=== PATIENT | female | born 1985 | race Caucasian/White ===

== ENCOUNTER 2019-05-19 06:00 | Outpatient (RCR) | payer MEDICAID, SELFPAY | END 2019-06-18 23:59 | disposition home or self-care (01) | LOC: MPT 06:00 | PROVIDERS: Family Provider Family Medicine; PCP Family Medicine; Referring Provider Family Medicine; Visit Provider Family Medicine | DX: Z47.81 Encounter for orthopedic aftercare following surgical amputation (principal); Z89.611 Acquired absence of right leg above knee | CPT/HCPCS: 97110; 97116; 97161 ==

== ENCOUNTER 2019-06-19 06:00 | Outpatient (RCR) | payer MEDICAID, OTHER, SELFPAY | END 2019-07-17 23:59 | disposition home or self-care (01) | LOC: MPT 06:00 | PROVIDERS: Family Provider Family Medicine; PCP Family Medicine; Referring Provider Family Medicine; Visit Provider Family Medicine | DX: R26.89 Other abnormalities of gait and mobility (principal); Z89.611 Acquired absence of right leg above knee | CPT/HCPCS: 97116 ==

== ENCOUNTER → 2019-07-14 10:51 | Outpatient (BNVA) | payer MEDICAID, OTHER, SELFPAY | PROVIDERS: Family Provider Family Medicine; PCP Family Medicine; Visit Provider Counselor Professional | DX: Z79.899 Other long term (current) drug therapy (principal); F31.32 Bipolar disorder, current episode depressed, moderate | CPT/HCPCS: 80061; 83036 ==

== ENCOUNTER 2019-07-18 06:00 | Outpatient (RCR) | payer MEDICAID, SELFPAY ==
[2019-07-15 16:28] VITALS: BP 118/80; BMI 33.8
== END 2019-08-17 23:59 | disposition home or self-care (01) ==
LOC: MPT 06:00
PROVIDERS: Family Provider Family Medicine; PCP Family Medicine; Referring Provider Family Medicine; Visit Provider Family Medicine
DX: Z89.611 Acquired absence of right leg above knee (principal)
CPT/HCPCS: 97116

== ENCOUNTER → 2020-09-06 11:46 | Outpatient (BNVA) | payer MEDICAID, SELFPAY ==
[2019-07-15 16:28] VITALS: BP 118/80; BMI 33.8
== END ==
PROVIDERS: Family Provider Family Medicine; PCP Family Medicine; Visit Provider Registered Nurse
DX: Z03.89 Encounter for observation for other suspected diseases and conditions ruled out (principal); Z79.899 Other long term (current) drug therapy
CPT/HCPCS: 36415; 80053; 80061; 82306; 83036; 84443; 85007; 85027

== ENCOUNTER → 2021-11-15 11:24 | Outpatient (BNVA) | payer MEDICAID, SELFPAY ==
[2019-07-15 16:28] VITALS: BP 118/80; BMI 33.8
== END ==
PROVIDERS: Family Provider Family Medicine; PCP Family Medicine; Visit Provider Registered Nurse
DX: F31.32 Bipolar disorder, current episode depressed, moderate (principal); F41.1 Generalized anxiety disorder; Z79.899 Other long term (current) drug therapy
CPT/HCPCS: 80053; 80061; 82306; 83036; 85025

== ENCOUNTER → 2022-08-15 11:18 | Outpatient (BNVA) | payer MEDICAID, SELFPAY ==
[2019-07-15 16:28] VITALS: BP 118/80; BMI 33.8
== END ==
PROVIDERS: Family Provider Family Medicine; PCP Family Medicine; Visit Provider Family Medicine
DX: M62.830 Muscle spasm of back (principal); M54.50 Low back pain, unspecified; G89.29 Other chronic pain
CPT/HCPCS: 72100

== ENCOUNTER 2022-08-26 13:39 | Outpatient (CLI) | payer MEDICAID, SELFPAY ==
[2019-07-15 16:28] VITALS: BP 118/80; BMI 33.8
--- NOTE | 2022-08-26 14:00 | CT_ITS ---
WS: [id number] CT LUMBAR SPINE, noncontrast. HISTORY: M54.50 - Low back pain, unspecified TECHNIQUE: Contiguous 2.0 mm axial imaging are performed. Sagittal and coronal reformats are submitte d and reviewed. All CT scans at [facility] use at least one of these dose optimization techni ques: automated exposure control; mA and/or kV adjustment per patient size (includes targeted exams w here dose is matched to clinical indication); or iterative reconstruction. IV contrast: None DLP: 731.18 mGy.cm COMPARISON: Radiograph 07/19/2022 Normal lumbar alignment with no loss of disc space height or vertebral body height. Dorsal column sti mulator electrodes are noted in the subarachnoid space. L1-2: Normal. L2-3: Small LEFT foraminal disc protrusion. Very slight contact on the traversing LEFT L3 nerve root. No displacement. L3-4: Very tiny LEFT foraminal disc protrusion. L4-5: Mild facet arthritis. No stenosis. L5-S1: No stenosis. Small amount of degenerative air in the SI joints. No fusion or erosions. CT/CT lumbar spine wo con* [id number] IMPRESSION: 1. No significant central or foraminal stenosis. 2. Small LEFT foraminal disc protrusions at L2-3 and L3-4. 3. Dorsal column stimulator is noted. 4. No fracture.
== END 2022-08-26 13:40 | disposition home or self-care (01) ==
LOC: RAD 13:46
PROVIDERS: PCP Family Medicine; Visit Provider Family Medicine
DX: G89.29 Other chronic pain (principal); M51.26 Other intervertebral disc displacement, lumbar region
CPT/HCPCS: 72131

== ENCOUNTER → 2022-09-18 09:34 | Outpatient (BNVA) | payer MEDICAID, SELFPAY ==
[2019-07-15 16:28] VITALS: BP 118/80; BMI 33.8
== END ==
PROVIDERS: PCP Family Medicine; Visit Provider Anesthesiology Pain Medicine
DX: G89.29 Other chronic pain (principal); M47.816 Spondylosis without myelopathy or radiculopathy, lumbar region; M62.830 Muscle spasm of back; Z89.511 Acquired absence of right leg below knee
CPT/HCPCS: 99205

== ENCOUNTER → 2022-10-08 10:08 | Outpatient (BNVA) | payer MEDICAID, SELFPAY ==
[2019-07-15 16:28] VITALS: BP 118/80; BMI 33.8
== END ==
PROVIDERS: PCP Family Medicine; Referring Provider Anesthesiology Pain Medicine; Visit Provider Orthopaedic Surgery
DX: Z01.818 Encounter for other preprocedural examination (principal); M54.9 Dorsalgia, unspecified; Z96.82 Presence of neurostimulator; Z89.511 Acquired absence of right leg below knee
CPT/HCPCS: 36415; 72070; 72110; 80053; 85025; 99204

== ENCOUNTER → 2022-10-15 13:24 | Outpatient (BNVA) | payer MEDICAID, SELFPAY ==
[2019-07-15 16:28] VITALS: BP 118/80; BMI 33.8
== END ==
PROVIDERS: PCP Family Medicine; Visit Provider Anesthesiology Pain Medicine
DX: M47.816 Spondylosis without myelopathy or radiculopathy, lumbar region (principal)
CPT/HCPCS: 64493; 64494; 64495; J3490

== ENCOUNTER 2022-10-25 06:21 | Day surgery (SDC) | payer MEDICAID, SELFPAY ==
[2019-07-15 16:28] VITALS: BP 118/80; BMI 33.8
--- NOTE | 2022-10-18 08:12 | ANES.PREANE2 ---
Pre-Anesthetic Assessment Height/Weight: Height 1.6 m Weight 90.265 kg Operation Date: 10/25/22 10:20 Proposed Procedures p Spinal cord stimulator generator removal: 47859,M54.9(Not Applicable) - Willian Tesfaye DO Familial anesthetic complications: none Social Alcohol (few times per month) Airway Submandibular: within normal limits Cervical ROM: within normal limits Mallampati: Class II Dentition: full Pulmonary None reported CV/HEM Hypertension None reported Hepatic None reported GI Gastroesophageal Reflux Disease (well controlled.) Metabolic Morbid Obesity Musc/skel Lower Back Pain and Weakness Wheelchair bound 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 Anesthetic Plan ASA status: 3 Anesthesia: General Medications/Allergies Home Medications Medication Instructions Recorded Confirmed Last Taken Type fluoxetine 10 mg capsule (Prozac) 10 mg PO DAILY #30 caps 05/11/22 10/18/22 10/18/22 Rx fluoxetine 20 mg capsule (Prozac) 20 mg PO DAILY #30 caps 05/11/22 10/18/22 10/18/22 Rx trazodone 100 mg tablet 200 mg PO .at bedtime #60 tabs 05/11/22 10/18/22 10/18/22 Rx gabapentin 800 mg tablet 800 mg PO TID 30 days #90 tabs 06/27/22 10/18/22 10/18/22 Rx loratadine 10 mg tablet (Allergy 10 mg PO DAILY 90 days #90 tabs 06/27/22 10/18/22 10/18/22 Rx Relief (loratadine)) metoprolol succinate 25 mg 25 mg PO DAILY 90 days #90 tabs 06/27/22 10/18/22 10/18/22 Rx tablet,extended release 24 hr pantoprazole 40 mg tablet,delayed 40 mg PO DAILY 90 days #90 tabs 06/27/22 10/18/22 10/18/22 Rx release methocarbamol 750 mg tablet 750 mg PO TID PRN muscle pain 30 08/15/22 10/18/22 10/18/22 Rx days #90 tabs aripiprazole 20 mg tablet 20 mg PO DAILY #30 tabs 08/27/22 10/18/22 10/18/22 Rx guanfacine 1 mg tablet 1 mg PO DAILY #30 tabs 09/17/22 10/18/22 10/18/22 Rx acetaminophen 325 mg tablet 325 mg PO QID PRN Pain 10/18/22 10/18/22 10/17/22 History (Tylenol) ibuprofen 400 mg tablet 400 mg PO Q6H PRN Pain 10/18/22 10/18/22 10/11/22 History Allergies Allergy/AdvReac Type Severity Reaction Status Date / Time amoxicillin Allergy Severe hives and Verified 10/18/22 07:42 trouble breathing PFS Anesthesia Medical History ADHD (attention deficit hyperactivity disorder), combined type Bipolar depression Fibromyalgia Generalized anxiety disorder History of hydrocephalus History of hydrocephalus Hx of osteosarcoma Insomnia Osteoarthritis Phantom limb pain Psychiatric care Seasonal allergies Surgical History Above knee amputation of right lower extremity 2019 Hx of knee surgery 2001 Hx of ventricular shunt present for 22 years Family History Grandfather Hyperlipidemia Cancer prostate Hypertension Grandmother Congestive heart failure Cancer Hyperlipidemia Social History Smoking and tobacco status: never smoked Second hand smoke exposure: No Alcohol intake: current Alcohol intake frequency: few times a month Alcohol type: beer and hard liquor Desire information about alcohol rehabilitation?: No Counseling given: No Substance/Drug Use: never Lives independently: Yes Household members: spouse and children Housing: House Marital status: Current gender identity: Female Female Reproductive History Date of last menstrual period: 09/25/22 Spontaneous abortions: No Data Anesthesia Cardiac Studies: No Data to Display
[2022-10-25] VITALS (12 sets, daily range): BP systolic 101–137; BP diastolic 69–92; PULSE 60–92; RESP 16–18; TEMP 36.3–36.4; O2SAT 92–99
--- NOTE | 2022-10-25 | XR_ITS ---
WS: [id number] XR lumbar spine 2-3V* [id number] REASON FOR EXAM: SPINAL CORD STIMULATOR REMOVAL FINDINGS: Previously demonstrated dorsal column stimulator leads and battery pack have been removed. Remaining medical devices: Infusion catheter and ventriculoperitoneal shunt tubing as noted on 023. XR/XR lumbar spine 2-3V* [id number] IMPRESSION: Removal of dorsal column stimulator leads and battery pack without abnormality. Remaining medical devices as above.
--- NOTE | 2022-10-25 06:38 | W.PM.OPSUD ---
Surgery/Procedure H&P Update DATE OF PROCEDURE: October 25, 2022 DATE H&P PERFORMED: 10/08/22 H&P UPDATE INFORMATION: I have reviewed H&P completed within last 30 days, I have examined patient prior to procedure and No changes to prior documentation PREOP DIAGNOSIS: Failed SCS PLANNED PROCEDURE: Operation Date: 10/25/22 07:55 Proposed Procedures p Spinal cord stimulator generator/leads removal: 85607,M54.9(Not Applicable) - Willian Tesfaye DO
[2022-10-25] MEDS: sodium chloride 0.9% 1,000 ML 30 ML IV (06:42)
[2022-10-25 06:45] LABS: OR HCG Qualitative Urine Negative (Negative)
[2022-10-25] MEDS: clindamycin 900 MG/50 ML PREMIX 100 MG IV (07:28)
[2022-10-25] MEDS: lidocaine-epi 1% 20 mL INJ INJECTION (07:56)
[2022-10-25] MEDS: vancomycin 1,000 MG SDV 1000 MG XX (07:56)
--- NOTE | 2022-10-25 08:10 | PM.OP ---
Operative Report Date of procedure: October 25, 2022 Pre-op diagnosis: Preop Diagnosis Failed SCS Post-op diagnosis: same Procedure done: 1. Removal of percutaneous spinal cord stimulator 2. Removal of Battery for spinal cord stimulator Surgeon: Willian Tesfaye Telephone Recorder: Jose Izquierdo Telephone Recorder: The rn surgical pcu, Jose Izquierdo, PAC was needed for his expertise surgery. He was important and necessary throughout the procedure to complete in a safe and timely manner. He assisted with patient positioning prepping and draping tissue retraction suctioning of the operative field protection of the critical structures and tissue closure Estimated blood loss (mL): 5 Procedure: 1. Removal of percutaneous spinal cord stimulator 2. Removal of Battery for spinal cord stimulator Patient was brought to the operative suite after undergoing anesthesia placed in the prone position.? All areas impingement well-padded.? Skin incision made over the battery in the left side.? The dissection was made down to the battery battery was pulled out wires that were attached to the battery were dissected out of the scar tissue.? [place] was placed on this to hold it in place.? Next tension was brought to the stimulator. The area where the wires were sutured in was dissected out.? The 2 wires that held the wires in place were dissected out cut out.? And then the wires were pulled out from the spinal column.? Once wires were removed this was cut and then the remaining wires were pulled out through the battery incision and the battery was removed. X-ray was brought in to ensure that the battery and wires were all removed.? Once this was completed then wounds were irrigated and closed in a layered fashion with 0 Vicryl 2-0 Vicryl and Monocryl suture.? Sterile dressings were applied patient was transferred to the PACU in stable condition.
[2022-10-25] MEDS: fentaNYL 50 mcg/mL INJ 2mL IVP ×3 (08:35→09:13)
[2022-10-25] MEDS: HYDROcodone-acetaminophen 5-325 mg Tablet 2 TAB PO (09:44)
--- NOTE | 2022-10-25 14:00 | ANE.PACU2 ---
Inpatient post-anesthesia follow up: Airway intact: Yes Vital signs: Temperature 97.3 F Pulse Rate 61 Respiratory Rate 17 Blood Pressure 101/69 Pulse Oximetry 95 Oxygen Delivery Me thod Room Air Oxygen Flow Rate Fraction of Inspir ed Oxygen Hydration adequate: Yes Nausea and vomiting: Yes Pain level: 1 Mental status: Baseline
== END 2022-10-25 10:06 | disposition home or self-care (01) ==
PROVIDERS: Physician Assistant; PCP Family Medicine; Visit Provider Orthopaedic Surgery
PROC: (CPT 63661; principal; 2022-10-25 07:55)
DX: M54.9 Dorsalgia, unspecified (principal); Y99.9 Unspecified external cause status; T85.113A Breakdown (mechanical) of implanted electronic neurostimulator, generator, initial encounter; G89.29 Other chronic pain
CPT/HCPCS: 63661; 63688; 72100; 74021; 76000; 81025; 84703; J1100; J2405; J2704; J3010; J3370; J3490; J7030

== ENCOUNTER → 2022-11-07 12:59 | Outpatient (BNVA) | payer MEDICAID, SELFPAY ==
[2019-07-15 16:28] VITALS: BP 118/80; BMI 33.8
== END ==
PROVIDERS: PCP Family Medicine; Visit Provider Orthopaedic Surgery
DX: Z48.89 Encounter for other specified surgical aftercare (principal)
CPT/HCPCS: 99024

== ENCOUNTER → 2022-11-11 14:39 | Outpatient (BNVA) | payer MEDICAID, SELFPAY ==
[2022-11-11 08:20] VITALS: BP 118/80; BMI 33.8
== END ==
PROVIDERS: PCP Family Medicine; Visit Provider Anesthesiology Pain Medicine
DX: M47.816 Spondylosis without myelopathy or radiculopathy, lumbar region (principal)
CPT/HCPCS: 64493; 64494; 64495; J3490

== ENCOUNTER → 2022-12-09 09:55 | Outpatient (BNVA) | payer MEDICAID, SELFPAY ==
[2022-11-11 08:20] VITALS: BP 118/80; BMI 33.8
== END ==
PROVIDERS: PCP Family Medicine; Visit Provider Anesthesiology Pain Medicine
DX: M47.816 Spondylosis without myelopathy or radiculopathy, lumbar region (principal); M62.830 Muscle spasm of back; M79.7 Fibromyalgia
CPT/HCPCS: 99214

== ENCOUNTER → 2023-01-30 09:41 | Outpatient (BNVA) | payer MEDICAID, SELFPAY ==
[2022-11-11 08:20] VITALS: BP 118/80; BMI 33.8
== END ==
PROVIDERS: PCP Family Medicine; Visit Provider Family Medicine
DX: N92.6 Irregular menstruation, unspecified
CPT/HCPCS: 81025

== ENCOUNTER → 2023-02-27 10:30 | Outpatient (BNVA) | payer MEDICAID, SELFPAY ==
[2022-11-11 08:20] VITALS: BP 118/80; BMI 33.8
== END ==
PROVIDERS: PCP Family Medicine; Visit Provider Registered Nurse
DX: Z79.899 Other long term (current) drug therapy (principal)
CPT/HCPCS: 80053; 80061; 82306; 83036; 85025

== ENCOUNTER → 2023-03-11 09:57 | Outpatient (BNVA) | payer MEDICAID, SELFPAY ==
[2022-11-11 08:20] VITALS: BP 118/80; BMI 33.8
== END ==
PROVIDERS: PCP Family Medicine; Visit Provider Anesthesiology Pain Medicine
DX: M47.816 Spondylosis without myelopathy or radiculopathy, lumbar region; M62.830 Muscle spasm of back; M79.7 Fibromyalgia; Z98.2 Presence of cerebrospinal fluid drainage device; M54.2 Cervicalgia
CPT/HCPCS: 99215

== ENCOUNTER → 2023-03-17 10:49 | Outpatient (BNVA) | payer MEDICAID, SELFPAY ==
[2022-11-11 08:20] VITALS: BP 118/80; BMI 33.8
== END ==
PROVIDERS: PCP Family Medicine; Visit Provider Specialist
DX: G91.9 Hydrocephalus, unspecified (principal); Z98.2 Presence of cerebrospinal fluid drainage device; R51.9 Headache, unspecified
CPT/HCPCS: 99205

== ENCOUNTER → 2023-03-25 14:29 | Outpatient (BNVA) | payer MEDICAID, SELFPAY ==
[2022-11-11 08:20] VITALS: BP 118/80; BMI 33.8
== END ==
PROVIDERS: PCP Family Medicine; Visit Provider Anesthesiology Pain Medicine
DX: M47.816 Spondylosis without myelopathy or radiculopathy, lumbar region (principal)
CPT/HCPCS: 64635; 64636; J1030

== ENCOUNTER 2023-03-26 13:07 | Outpatient (CLI) | payer MEDICAID, SELFPAY ==
[2022-11-11 08:20] VITALS: BP 118/80; BMI 33.8
--- NOTE | 2023-03-26 13:30 | CT_ITS ---
WS: [id number] CT NECK WITH CONTRAST HISTORY: M54.2 - Cervicalgia TECHNIQUE: Contiguous 2 mm axial images are performed through the neck with intravenous contrast. Sag ittal and coronal reformats are also submitted. All CT scans at [facility] use at least one o f these dose optimization techniques: automated exposure control; mA and/or kV adjustment per patient size (includes targeted exams where dose is matched to clinical indication); or iterative reconstruc tion. CONTRAST: CONTRAST: Omnipaque 350; 100 mL IV. DLP: 175.43 mGy.cm COMPARISON: None available. Nasopharynx, oropharynx, hypopharynx and larynx are unremarkable. No soft tissue masses or abnormal e nhancement. Torus tubarius and fossa of Rosenmuller and parapharyngeal fat are normal. No significant lymphadenopathy is identified. Thyroid gland and salivary glands are normally enhancing with no masses. No osseous abnormalities. Visualized portions of the skull base demonstrate no abnormalities. Orbits and globes are within norm al limits. No soft tissue masses. No Chiari malformation evident on this exam. SOIL SCIENTIST shunt catheter judith g the RIGHT occipital bone. Visualized paranasal sinuses and mastoid air cells are normal. Lung apices are clear. LEFT carotid artery arises from the base of the innominate. IMPRESSION: 1. Negative CT neck. 2. No adenopathy or mass. 3. SOIL SCIENTIST shunt catheter noted along the posterior RIGHT occipital bone. 4. No Chiari malformation.
--- NOTE | 2023-03-26 14:00 | CT_ITS ---
WS: [id number] CT HEAD NONCONTRAST HISTORY: M54.9 - Dorsalgia, unspecified TECHNIQUE: Contiguous axial imaging performed through the brain in 2.5 mm imaging. Bone and soft tiss ue windows. Sagittal and coronal reformats reviewed. All CT scans at [facility] use at least one of these dose optimization techniques: automated exposure control; mA and/or kV adjustment per pa tient size (includes targeted exams where dose is matched to clinical indication); or iterative recon struction. DLP: 1039.41 mGy.cm COMPARISON: None available. No acute intracranial hemorrhage, midline shift or mass effect. No significant atrophy. No midline shift. There is mild low-attenuation in the periventricular white matter. Calcification in the central RIGHT frontal lobe. Ventricles: No hydrocephalus. There is a COMPUTER TESTER shunt catheter entering through the posterior RIGHT parie marino lobe crossing the midline with tip in the LEFT lateral ventricle. No prior studies for comparison . No intra displacement the cerebellar tonsils. Paranasal sinuses: Very minimal mucoperiosteal thickening in the posterior RIGHT ethmoid air cells. Mastoid air cells: Well pneumatized. Calvarium and scalp: Bifrontal craniotomy sites. Maicol hole in the posterior RIGHT parietal lobe. IMPRESSION: 1. RIGHT parietal COMPUTER TESTER shunt catheter with tip terminating in the LEFT lateral ventricle. No hydrocepha han. No prior studies for comparison. 2. Mild periventricular white matter disease.
[2023-03-26] MEDS: iohexol 350 mg/mL 500 mL Btl (per mL) IV ×2 (14:29→14:30)
--- NOTE | 2023-03-26 14:30 | CT_ITS ---
WS: [id number] CT LUMBAR SPINE, with and without contrast. HISTORY: Z98.2 - Presence of cerebrospinal fluid drainage device TECHNIQUE: Contiguous 2.0 mm axial imaging are performed. Sagittal and coronal reformats are submitte d and reviewed. All CT scans at [facility] use at least one of these dose optimization techni ques: automated exposure control; mA and/or kV adjustment per patient size (includes targeted exams w here dose is matched to clinical indication); or iterative reconstruction. Postcontrast imaging also performed. IV contrast: Omnipaque 75 mL IV. DLP: 713.50 mGy.cm COMPARISON: 08/26/2022 CT lumbar spine Normal posterior lumbar alignment. The disc spaces and vertebral body heights are well-maintained. Th ere is only a single stimulator wire now remaining entering the epidural space at L2-3. The battery p ack and the stimulator wire entering at the L3-4 level has been removed. L1-2: No stenosis L2-3: Mild disc bulging. No stenosis L3-4: Mild disc bulging without stenosis. L4-5: Mild annular disc bulging and facet arthritis. No high-grade stenosis. L5-S1: Mild disc bulging and facet arthritis. No stenosis. No area of abnormal enhancement within the lumbar spine. No evidence for an abscess or soft tissue ma ss. On the denture finisher image there is a [employer] ADMINISTRATOR shunt catheter projecting over the RIGHT abdomen and pelvis. IMPRESSION: 1. Single stimulator wire remains in the epidural space of the lumbar spine. The most superior extent of the wire has not been included on the lumbar spine CT. Stimulator wire enters at the L2-3 space. 2. Previously noted stimulator wire and the battery pack entering at the L3-4 level has been removed. 3. No areas of abnormal enhancement. No mass effect upon the spinal canal. 4. No spine stenosis.
== END 2023-03-26 13:08 | disposition home or self-care (01) ==
LOC: RAD 13:08
PROVIDERS: PCP Family Medicine; Visit Provider Specialist
DX: M54.2 Cervicalgia (principal); M54.9 Dorsalgia, unspecified; Z98.2 Presence of cerebrospinal fluid drainage device; R90.82 White matter disease, unspecified
CPT/HCPCS: 70450; 70491; 72133; Q9967

== ENCOUNTER → 2023-04-15 13:16 | Outpatient (BNVA) | payer MEDICAID, SELFPAY ==
[2022-11-11 08:20] VITALS: BP 118/80; BMI 33.8
== END ==
PROVIDERS: PCP Family Medicine; Visit Provider Anesthesiology Pain Medicine
DX: M47.816 Spondylosis without myelopathy or radiculopathy, lumbar region (principal)
CPT/HCPCS: 64635; 64636; J1030

== ENCOUNTER → 2023-04-16 13:20 | Outpatient (BNVA) | payer MEDICAID, SELFPAY ==
[2022-11-11 08:20] VITALS: BP 118/80; BMI 33.8
== END ==
PROVIDERS: PCP Family Medicine; Visit Provider Specialist
DX: G91.9 Hydrocephalus, unspecified (principal); F90.2 Attention-deficit hyperactivity disorder, combined type; Z98.2 Presence of cerebrospinal fluid drainage device; G43.711 Chronic migraine without aura, intractable, with status migrainosus
CPT/HCPCS: 99214

== ENCOUNTER → 2023-04-29 08:42 | Outpatient (BNVA) | payer MEDICAID, SELFPAY ==
[2022-11-11 08:20] VITALS: BP 118/80; BMI 33.8
== END ==
PROVIDERS: PCP Family Medicine; Visit Provider Anesthesiology Pain Medicine
DX: M47.816 Spondylosis without myelopathy or radiculopathy, lumbar region; M62.830 Muscle spasm of back; M79.7 Fibromyalgia; Z98.2 Presence of cerebrospinal fluid drainage device
CPT/HCPCS: 99213

== ENCOUNTER → 2023-05-26 10:23 | Outpatient (BNVA) | payer MEDICAID, SELFPAY ==
[2022-11-11 08:20] VITALS: BP 118/80; BMI 33.8
== END ==
PROVIDERS: PCP Family Medicine; Visit Provider Nurse Practitioner Family
DX: R68.89 Other general symptoms and signs (principal); J11.1 Influenza due to unidentified influenza virus with other respiratory manifestations; J40 Bronchitis, not specified as acute or chronic
CPT/HCPCS: 87400

== ENCOUNTER → 2023-06-17 11:01 | Outpatient (BNVA) | payer MEDICAID, SELFPAY ==
[2022-11-11 08:20] VITALS: BP 118/80; BMI 33.8
== END ==
PROVIDERS: PCP Family Medicine; Visit Provider Family Medicine
DX: G54.6 Phantom limb syndrome with pain (principal); G43.711 Chronic migraine without aura, intractable, with status migrainosus; M79.7 Fibromyalgia; M62.830 Muscle spasm of back; J30.2 Other seasonal allergic rhinitis; R39.198 Other difficulties with micturition; R31.9 Hematuria, unspecified; Z79.899 Other long term (current) drug therapy
CPT/HCPCS: 81000; 87086

== ENCOUNTER → 2023-10-29 09:52 | Outpatient (BNVA) | payer MEDICAID, SELFPAY ==
[2022-11-11 08:20] VITALS: BP 118/80; BMI 33.8
== END ==
PROVIDERS: PCP Family Medicine; Visit Provider Anesthesiology Pain Medicine
DX: M47.816 Spondylosis without myelopathy or radiculopathy, lumbar region; M62.830 Muscle spasm of back; M79.7 Fibromyalgia; Z98.2 Presence of cerebrospinal fluid drainage device
CPT/HCPCS: 99214

== ENCOUNTER → 2024-02-13 14:05 | Outpatient (BNVA) | payer MEDICAID, SELFPAY ==
[2024-01-06 13:01] VITALS: BP 118/80; BMI 33.8
== END ==
PROVIDERS: PCP Family Medicine; Referring Provider Family Medicine; Visit Provider Specialist
DX: Z98.2 Presence of cerebrospinal fluid drainage device (principal); G91.9 Hydrocephalus, unspecified; G43.711 Chronic migraine without aura, intractable, with status migrainosus; R41.89 Other symptoms and signs involving cognitive functions and awareness
CPT/HCPCS: 99213

== ENCOUNTER → 2024-03-18 11:27 | Outpatient (BNVA) | payer MEDICAID, SELFPAY ==
[2024-01-06 13:01] VITALS: BP 118/80; BMI 33.8
== END ==
PROVIDERS: PCP Family Medicine; Visit Provider Family Medicine
DX: I10 Essential (primary) hypertension (principal); E78.2 Mixed hyperlipidemia
CPT/HCPCS: 80053; 80061; 85025

== ENCOUNTER → 2024-06-11 09:57 | Outpatient (BNVA) | payer MEDICAID, SELFPAY ==
[2024-01-06 13:01] VITALS: BP 118/80; BMI 33.8
== END ==
PROVIDERS: PCP Family Medicine; Visit Provider Specialist
DX: Z98.2 Presence of cerebrospinal fluid drainage device (principal); G91.9 Hydrocephalus, unspecified; G43.711 Chronic migraine without aura, intractable, with status migrainosus; R41.89 Other symptoms and signs involving cognitive functions and awareness; G54.6 Phantom limb syndrome with pain
CPT/HCPCS: 99213

== ENCOUNTER → 2024-07-05 09:51 | Outpatient (BNVA) | payer MEDICAID, SELFPAY ==
[2024-01-06 13:01] VITALS: BP 118/80; BMI 33.8
== END ==
PROVIDERS: PCP Family Medicine; Visit Provider Anesthesiology Pain Medicine
DX: M47.816 Spondylosis without myelopathy or radiculopathy, lumbar region (principal); M62.830 Muscle spasm of back; M79.7 Fibromyalgia; Z98.2 Presence of cerebrospinal fluid drainage device
CPT/HCPCS: 99214

== ENCOUNTER → 2024-07-28 09:03 | Outpatient (BNVA) | payer MEDICAID, SELFPAY ==
[2024-01-06 13:01] VITALS: BP 118/80; BMI 33.8
== END ==
PROVIDERS: PCP Family Medicine; Visit Provider Anesthesiology Pain Medicine
DX: M47.816 Spondylosis without myelopathy or radiculopathy, lumbar region (principal); M54.9 Dorsalgia, unspecified
CPT/HCPCS: 64635; 64636; J1010; J9999

== ENCOUNTER → 2024-07-30 13:02 | Outpatient (BNVA) | payer MEDICAID, SELFPAY ==
[2024-01-06 13:01] VITALS: BP 118/80; BMI 33.8
== END ==
PROVIDERS: PCP Family Medicine; Visit Provider Specialist
DX: G54.6 Phantom limb syndrome with pain (principal)
CPT/HCPCS: 64642; 99212; J0585; J9999

== ENCOUNTER → 2024-08-16 08:48 | Outpatient (BNVA) | payer MEDICAID, SELFPAY ==
[2024-01-06 13:01] VITALS: BP 118/80; BMI 33.8
== END ==
PROVIDERS: PCP Family Medicine; Visit Provider Anesthesiology Pain Medicine
DX: M54.9 Dorsalgia, unspecified (principal); M47.816 Spondylosis without myelopathy or radiculopathy, lumbar region; M62.830 Muscle spasm of back; M79.7 Fibromyalgia; Z98.2 Presence of cerebrospinal fluid drainage device
CPT/HCPCS: 99214

== ENCOUNTER → 2024-11-05 11:07 | Outpatient (BNVA) | payer MEDICAID, SELFPAY ==
[2024-01-06 13:01] VITALS: BP 118/80; BMI 33.8
== END ==
PROVIDERS: PCP Family Medicine; Visit Provider Specialist
DX: G54.6 Phantom limb syndrome with pain (principal)
CPT/HCPCS: 64642; 99213; J0585; J9999

== ENCOUNTER → 2024-12-13 08:29 | Outpatient (BNVA) | payer MEDICAID, SELFPAY ==
[2024-01-06 13:01] VITALS: BP 118/80; BMI 33.8
== END ==
PROVIDERS: PCP Family Medicine; Visit Provider Specialist
DX: G43.711 Chronic migraine without aura, intractable, with status migrainosus (principal)
CPT/HCPCS: 96372; 99213

== ENCOUNTER → 2024-12-15 07:52 | Outpatient (BNVA) | payer MEDICAID, SELFPAY ==
[2024-01-06 13:01] VITALS: BP 118/80; BMI 33.8
== END ==
PROVIDERS: PCP Family Medicine; Visit Provider Physician Assistant
DX: M23.304 Other meniscus derangements, unspecified medial meniscus, left knee (principal); M25.562 Pain in left knee
CPT/HCPCS: 20610; 73560; 73565; 99203; J3301; J9999

== ENCOUNTER → 2024-12-31 09:49 | Outpatient (BNVA) | payer MEDICAID, SELFPAY ==
[2024-12-27 12:40] VITALS: BP 118/80; BMI 33.8
== END ==
PROVIDERS: PCP Family Medicine; Visit Provider Physician Assistant
DX: M25.552 Pain in left hip (principal); M70.62 Trochanteric bursitis, left hip
CPT/HCPCS: 20610; 73502; 99213; J3301; J3490; J9999

== ENCOUNTER → 2025-01-18 09:57 | Outpatient (BNVA) | payer MEDICAID, SELFPAY ==
[2024-12-27 12:40] VITALS: BP 118/80; BMI 33.8
== END ==
PROVIDERS: PCP Family Medicine; Visit Provider Anesthesiology Pain Medicine
DX: M54.9 Dorsalgia, unspecified (principal); M47.816 Spondylosis without myelopathy or radiculopathy, lumbar region; M62.830 Muscle spasm of back; M79.7 Fibromyalgia; Z98.2 Presence of cerebrospinal fluid drainage device
CPT/HCPCS: 99214

== ENCOUNTER → 2025-01-20 13:48 | Outpatient (BNVA) | payer MEDICAID, SELFPAY ==
[2024-12-27 12:40] VITALS: BP 118/80; BMI 33.8
== END ==
PROVIDERS: PCP Family Medicine; Visit Provider Specialist
DX: G43.711 Chronic migraine without aura, intractable, with status migrainosus (principal); G54.6 Phantom limb syndrome with pain; Z98.2 Presence of cerebrospinal fluid drainage device; G91.9 Hydrocephalus, unspecified; R41.89 Other symptoms and signs involving cognitive functions and awareness
CPT/HCPCS: 64615; J0585; J9999

== ENCOUNTER → 2025-03-03 11:06 | Outpatient (BNVA) | payer MEDICAID, SELFPAY ==
[2024-12-27 12:40] VITALS: BP 118/80; BMI 33.8
== END ==
PROVIDERS: PCP Family Medicine; Visit Provider Specialist
DX: G54.6 Phantom limb syndrome with pain (principal); Z98.2 Presence of cerebrospinal fluid drainage device; G91.9 Hydrocephalus, unspecified; G43.711 Chronic migraine without aura, intractable, with status migrainosus; R41.89 Other symptoms and signs involving cognitive functions and awareness
CPT/HCPCS: 64642; 99213; J0585; J9999

== ENCOUNTER → 2025-04-05 09:54 | Outpatient (BNVA) | payer MEDICAID, SELFPAY ==
[2024-12-27 12:40] VITALS: BP 118/80; BMI 33.8
== END ==
PROVIDERS: PCP Family Medicine; Visit Provider Physician Assistant
DX: M70.62 Trochanteric bursitis, left hip (principal)
CPT/HCPCS: 99213

== ENCOUNTER → 2025-04-28 10:54 | Outpatient (BNVA) | payer MEDICAID, SELFPAY ==
[2024-12-27 12:40] VITALS: BP 118/80; BMI 33.8
== END ==
PROVIDERS: PCP Family Medicine; Visit Provider Specialist
DX: G43.711 Chronic migraine without aura, intractable, with status migrainosus (principal)
CPT/HCPCS: 64615; J0585; J9999

== ENCOUNTER → 2025-05-04 13:47 | Outpatient (BNVA) | payer MEDICAID, SELFPAY ==
[2024-12-27 12:40] VITALS: BP 118/80; BMI 33.8
== END ==
PROVIDERS: PCP Family Medicine; Visit Provider Family Medicine
DX: Z12.4 Encounter for screening for malignant neoplasm of cervix (principal)
CPT/HCPCS: 87624